=== PATIENT | female | born 2000 | race Two or more races ===

== ENCOUNTER 2024-04-19 21:04 | Emergency (ER) | payer MEDICAID, SELFPAY ==
[2024-04-19 21:06] VITALS: BMI 23.4
[2024-04-19 21:16] VITALS: BP 116/83; PULSE 78; RESP 18; TEMP 36.6; O2SAT 99
--- NOTE | 2024-04-19 21:31 | XR_ITS ---
Examination: CT brain head without contrast. 2-D sagittal coronal reconstructions Date and time of exam:April 19, 2024 1130 hrs. Indications: Syncopal episode today, patient fell with injury to the head, head pain CTDI: vol (mGy):49.3 DLP: (mGycm):974 Technique: Multiple CT axial sections of the brain have been obtained, 5 mm slice thickness. Contrast has not been administered. 2-D sagittal, coronal reconstructions have been obtained Low dose protocols were performed. One or more of the following dose reduction techniques were used; automated exposure control, adjustment of the mA and/or KV according to patient size, use of iterative reconstruction technique. Findings: No significant ventricular enlargement. Intra-axial or extra-axial hemorrhage density is not seen. No mass effect or midline shift Basal cisterns are not remarkable. Fourth ventricle is midline. Cranial vault intact. Impression: Negative for acute hemorrhage, mass effect or midline shift
--- NOTE | 2024-04-19 21:31 | XR_ITS ---
Examination: CT cervical spine without contrast 2-D sagittal reconstructions 2-D coronal reconstructions 3-D reconstructions. Exam date and time:April 19, 2024 11:30 PM Indications: Patient fell today with injury to the neck, neck pain CTDI:vol (mGy) 7.31 DLP: (mGycm) 139 Technique: Multiple 2 mm axial sections of the cervical spine have been obtained. The coronal and sagittal reconstructions have been obtained. 3-D reconstructions have been obtained. Low dose protocols were performed. One or more of the following dose reduction techniques were used; automated exposure control, adjustment of the mA and/or KV according to patient size, use of iterative reconstruction technique. Findings: Axial sections demonstrate intact base of the skull. C1 exhibit satisfactory relationship to the odontoid. No acute cervical vertebral body fracture seen. Alignment posterior spinous processes satisfactory. Impression: No acute cervical fracture.
--- NOTE | 2024-04-19 21:32 | XR_ITS ---
Examination: Transvaginal ultrasound of the pelvis, complete Technique: Transvaginal sonographic images pelvis performed using kirby scale imaging Exam date and time: 810 0 1:00 PM Indications: Heavy vaginal bleeding today Findings: Uterus 8.2 x 3.2 x 4.9 cm No intrauterine gestation Minimal free fluid in the lower endometrial canal Endometrial stripe 0.4 cm Right ovary 3.0 x 2.2 x 1.8 cm arterial flow 17 mm follicular cyst Left ovary 3.6 x 2.5 x 2.7 cm arterial flow 24 x 21 mm cyst with internal echoes Impression: No uterine mass or intrauterine gestation Small left ovarian hemorrhagic cyst.
--- NOTE | 2024-04-19 21:40 | EDNOTE_ITS ---
ED Female Urogenital RME/HPI General Chief complaint: Urogenital-Female Stated complaint: ABD PAIN, N/V THINKS SHE HAD A MISCARRIAGE Time Seen by Provider: 04/19/24 21:31 Arrival date/time: 04/19/24 21:04 23F with history of anxiety presents to ED with vaginal bleeding. Patient thinks she's having a miscarriage because her periods are irregular even though she's had two negative HCG urine tests. While patient was bleeding, patient got scared, fainted, and hit her head. Patient denies AMS, seizures, neck pain, vision changes, and N/V. Limitations: no limitations Related Data Allergies Allergy/AdvReac Type Severity Reaction Status Date / Time No Known Allergies Allergy Verified 04/19/24 21:09 Review of Systems Review of Systems Systems Reviewed: All systems reviewed, normal except as documented Constitutional Constitutional: Reports system reviewed and no additional complaints, except as documented, Reports as per HPI, Denies fever(s) and Reports headache(s) (pain) ENT Ears, Nose, Mouth, and Throat: Denies disequilibrium and Reports headache(s) (pain) Cardiovascular Cardiovascular: Reports system reviewed and no additional complaints, except as documented, Denies chest pain and Denies dyspnea Respiratory Respiratory: Reports system reviewed and no additional complaints, except as documented, Denies cough and Denies dyspnea Gastrointestinal Gastrointestinal: Reports system reviewed and no additional complaints, except as documented, Denies abdominal pain, Denies nausea and Denies vomiting Genitourinary Genitourinary: Reports as per HPI and Reports abnormal vaginal bleeding Neurologic Neurologic: Reports system reviewed and no additional complaints, except as documented, Denies confusion, Denies disequilibrium and Reports headache(s) (pain) Psychiatric Psychiatric: Denies confusion Past Medical History Past Medical History CARDIAC: Negative Congestive Heart Failure RESPIRATORY: Negative Chronic Obstructive Pulmonary Disease (COPD) GENITOURINARY: Negative Renal Disease ENDOCRINE: Negative Diabetes Mellitus Type 1 or Diabetes Mellitus Type 2 Social History SMOKING STATUS: Never smoker ED Exam General Limitations: Present no limitations General appearance: Present alert and in no apparent distress Head Head exam: Present atraumatic Eye Eye exam: Present normal appearance, PERRL and EOMI ENT ENT exam: Present normal exam, normal oropharynx and mucous membranes moist Neck Neck exam: Present normal inspection, full ROM and trachea midline Chest Chest inspection: Present normal inspection and symmetric chest wall rise Respiratory Respiratory exam: Present normal lung sounds bilaterally Cardiovascular Cardiovascular exam: Present regular rate, normal rhythm and normal heart sounds Abdominal Exam Abdominal exam: Present soft and normal bowel sounds Extremities Exam Extremities exam: Present normal inspection and full ROM Back Exam Back exam: Present normal inspection and full ROM Neurological Exam Neurological exam: Present alert, oriented X3 and CN II-XII intact Psychiatric Psychiatric exam: Present normal affect and anxious (crying) Skin Skin exam: Present warm, dry, intact and normal color Course Quality Measures none Orders Category Date Time Status CT cervical spine wo con Stat Exams 04/19/24 21:[address] head/brain wo con Stat Exams 04/19/24 21:31 Completed US transvaginal Stat Exams 04/19/24 21:32 Completed ABO/RH Type Stat Lab 04/19/24 22:19 Completed Beta HCG,Quantitative Stat Lab 04/19/24 22:19 Completed CBC Stat Lab 04/19/24 22:19 Completed CMP [Comprehensive Metabolic Panel] Stat Lab 04/19/24 22:19 Completed Urinalysis, C/S if Indicated Stat Lab 04/19/24 21:05 Completed Urine Culture Stat Lab 04/19/24 21:05 Received Acetaminophen Tab [Tylenol Tab] Med 04/19/24 22:19 Discontinued 650 mg PO X1 ONE Vital Signs Vital signs: Vital Signs Temperature 98 F 04/19/24 21:16 Pulse Rate 78 04/19/24 21:16 Respiratory Rate 18 04/19/24 21:16 Blood Pressure 116/83 04/19/24 21:16 Pulse Oximetry (%) 99 04/19/24 21:16 Oxygen Delivery Method Room Air 04/19/24 21:16 O2 at 99% on RA and WNLs Urogenital - Female MDM Narrative MDM Narrative:: 23F with history of anxiety presents to ED with vaginal bleeding. Patient thinks she's having a miscarriage because her periods are irregular even though she's had two negative HCG urine tests. While patient was bleeding, patient got scared, fainted, and hit her head. Patient denies AMS, seizures, neck pain, vision changes, and N/V. Physical exam reveals normal pupil response and EOM. ENT clear No neck tenderness. ROM intact. No back/ab/pelvic tenderness. Patient is afebrile, alert, but crying/anxious. Despite recommending no CT head, patient wants it. CT normal. US ovarian cyst. Mild anemia. CMP unremarkable. HCG <1. Patient is not . Patient data External records reviewed:: [facility] previous records Clinical information provided by:: patient Social determinants that could affect healthcare access:: none Patient has the following chronic illnesses:: none How is presenting disease/condition affected by chronic disease/condition?: no chronic disease Evaluation data The following diagnostics were reviewed and interpreted by me:: lab results and radiology exam(s) Lab and/or radiology exams considered but not ordered:: ordered Interpretation Summary: above Medications / Prescriptions Medications or Prescriptions considered but not ordered:: not ordered Medication administrations:: Medication Administration History Discontinued Medications Acetaminophen (Acetaminophen 325 Mg Tablet) 650 mg PO X1 ONE Stop: 04/19/24 22:20 Last Admin: 04/19/24 22:44 Dose: 650 mg Documented By: SEN n/a Consultations Consultation(s) initiated? (list below): No Diagnosis Urogenital Female Differential Diagnosis: urinary tract infection, bacterial vaginosis, trichomoniasis, cervicitis, ovarian cyst, vaginitis, ruptured ovarian cyst, cyst of Bartholin's gland, cystitis, dysmenorrhea and other (CHI, brain bleed, skull fx, vaginal bleeding, miscarriage) Most likely diagnosis given after review of the tests above:: ovarian cyst Admission Indicated Admission indicated?: not indicated Admission Request Was there a request for admission?: No Disposition Plan Disposition Plan: Discharge Discharge Attestation Discharge Attestation: The patient and all family members were given an opportunity to ask questions and understood the discharge instructions. Discharge instructions specifically effects, indications for sooner follow up or return to the emergency department, and the expected course of current diagnosis. Patient condition: Stable Discharge Plan Plan Patient Disposition: HOME (Self Care) Disposition Comment: Stable Prescriptions/Referrals Referrals: Darek Pierce PA-C [Primary Care Provider] - In 1 week Problem List Clinical Impression: Ovarian cyst Patient/Caregiver Discharge Instructions Education Materials: ED Ovarian Cyst Additional Instructions: Please follow-up with PCP/OBGYN within 24-48 hours and return immediately if symptoms worsen. Print Language: Wallisian Stand Alone Forms: Patient Portal Info Letter ARTURO/RAY Supervising Physician ARMIN Supervising Physician: Dr. Carter
[2024-04-19 22:02] LABS: Collection Type, Urine Clean Catch; WBC,Urine 0 /hpf (0-5)
[2024-04-19 22:11] LABS: Bacteria,Urine 4+; Bilirubin,Urine Negative (Negative); Blood,Urine 3+ (Negative); Clarity,Urine Clear (Clear/Hazy); Color,Urine Lt-Yellow (Lt Yel-Yel); Glucose, Urine Negative (Negative); Ketones,Urine Negative (Negative); Leukocyte Esterase,Urine Negative (Negative); Nitrite,Urine Negative (Negative); Protein,Urine Negative (Neg - Trace); RBC,Urine 5 /hpf (0-3); Specific Gravity,Urine 1.009 (1.001-1.035); Squamous Epithelial Cell,Urine 1 /hpf (0-5); Urobilinogen,Urine Negative mg/dL (0.0-1.0)
[2024-04-19 22:12] LABS: Culture Indicated,Urine Yes
[2024-04-19 22:40] LABS: Basophils % (Auto) 1 % (0-2.5); Eosinophils # (Auto) 0.1 Thou/mm3 (0.0-0.5); Eosinophils % (Auto) 2 % (0-10); Hematocrit 33.6 % (36.0-46.0); Hemoglobin 10.5 g/dL (12.0-16.0); Immature Granulocytes % (Auto) 0 % (0-0); Immature Granulocytes Auto 0.02 Thou/mm3 (0.00-0.00); Lymphocytes # (Auto) 1.8 Thou/mm3 (1.0-4.8); Lymphocytes % (Auto) 27 % (10-50); Mean Corpuscular HGB Conc 31.3 g/dl (31.0-37.0); Mean Corpuscular Hemoglobin 22.1 pg (25.0-35.0); Mean Corpuscular Volume 71 fL (80-100); Monocytes # (Auto) 0.6 Thou/mm3 (0.0-0.8); Monocytes % (Auto) 9 % (0-12); Neutrophils # (Auto) 4.1 Thou/mm3 (1.8-7.7); Neutrophils % (Auto) 61 % (37-80); Nucleated Red Blood Cell % 0 /100 WBC (0); Platelet Count 504 Thou/mm3 (140-440); RDW Standard Deviation 42.2 fL (36.4-46.3); Red Blood Count 4.75 Miln/mm3 (4.00-5.20); White Blood Count 6.7 Thou/mm3 (3.6-11.0)
[2024-04-19] MEDS: ACETAMINOPHEN 325 MG TABLET 650 MG PO (22:44)
[2024-04-19 22:55] LABS: Sodium 137 mMol/L (136-145)
[2024-04-19 22:56] LABS: Alanine Aminotransferase 13 U/L (10-49); Albumin, Serum 4.9 gm/dL (3.5-5.0); Albumin/Globulin Ratio 1.6 (1.2-2.2); Alkaline Phosphatase 62 U/L (46-116); Anion Gap 7 (7-16); Aspartate Amino Transferase 24 U/L (0-34); BUN/Creatinine Ratio 12 Ratio (12-20); Beta HCG,Quantitative < 1 mIU/mL (<5.0); Bilirubin,Total 0.5 mg/dL (0.3-1.2); Blood Urea Nitrogen 12 mg/dL (9-23); Carbon Dioxide 24.5 mMol/L (20.0-31.0); Chloride 106 mMol/L (98-107); Globulin 3.1 gm/dL (2.3-3.5); Glucose 87 mg/dL (74-106); Osmolality,Calculated 272 (275-295); Potassium 3.8 mMol/L (3.4-5.1); eGFR > 60 See Note
== END 2024-04-20 00:25 | disposition home or self-care (01) ==
PROVIDERS: Physician Assistant; Emergency Provider Emergency Medicine; PCP Family Medicine
DX: N83.202 Unspecified ovarian cyst, left side (principal); S09.90XA Unspecified injury of head, initial encounter; S19.9XXA Unspecified injury of neck, initial encounter; W19.XXXA Unspecified fall, initial encounter
CPT/HCPCS: 36415; 70450; 72125; 76830; 80053; 81001; 84702; 85025; 86900; 86901; 87086; 99284; A9270

== ENCOUNTER 2025-01-09 10:38 | Emergency (ER) | payer OTHER, SELFPAY ==
[2025-01-09 10:39] VITALS: BMI 22.8
[2025-01-09 10:55] VITALS: BP 143/93; PULSE 82; RESP 17; TEMP 37.3; O2SAT 100
--- NOTE | 2025-01-09 11:01 | EKG_ITS ---
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
--- NOTE | 2025-01-09 11:02 | PD.EDADULT ---
ED General RME/HPI General Chief complaint: Fall Stated complaint: FELL AND HIT HEAD Time Seen by Provider: 01/09/25 10:57 Arrival date/time: 01/09/25 10:38 CC: Syncope resulting in nausea and vomiting after waking back up HPI onset approximately for half an hour ago patient states he had a brief episode of dizziness prior to syncope states she was at the coffee machine and next thing she knew she woke up on the floor. Patient since then has mild pain in the back of her head with nausea and vomiting x 1. Patient is awake alert oriented cleaning a minor amount of dizziness. Has a prior history of syncopal events. Last menstrual cycle was 5 weeks ago. Patient is sexually active. Related Data Allergies Allergy/AdvReac Type Severity Reaction Status Date / Time No Known Allergies Allergy Verified 01/09/25 10:38 Review of Systems Review of Systems Narrative Review of Systems: GEN: No fever, no chills, no weight loss EYES: No discharge, no visual changes, no pain HEENT: No ear pain, no congestion, no sore throat PULM: No shortness of breath, no cough, no congestion CV: No chest pain, no dyspnea on exertion, no palpitations GI: No nausea, no vomiting, no diarrhea, no pain, no constipation : No frequency, no urgency, no dysuria MUSC/SKEL: No joint pain, no back pain SKIN: No rash PSYCH: No hallucinations, no depression HEME/LYMPH: No easy bleeding or bruising tendencies NEURO: No weakness, + headache Past Medical History Past Medical History CARDIAC: Negative Congestive Heart Failure RESPIRATORY: Negative Chronic Obstructive Pulmonary Disease (COPD) GENITOURINARY: Negative Renal Disease ENDOCRINE: Negative Diabetes Mellitus Type 1 or Diabetes Mellitus Type 2 Social History SMOKING STATUS: Never smoker ED Exam Narrative Physical exam: [General: Not in any acute distress Head normocephalic mild tenderness to the right occiput no depression abrasion laceration induration or ulceration. HEENT: Eyes pupils are PERRLA EOMs are intact mouth pink moist membranes uvula is midline swallow symmetrical phonation is normal. Within acceptable limits Neck is supple nontender nontender to palpation over the spinous processes full range of motion lateral rotation flexion and extension. Chest equal chest rise nontender to palpation Respiratory: Clear to auscultation no wheezes crackles or rubs CV: Rate rhythm is regular no murmurs rubs or clicks Abdomen is soft nontender no masses positive bowel sounds all 4 quadrants Back: No CVA tenderness no spinous process tenderness from cervical spine thoracic and lumbar spine Skin: Intact no petechiae rash induration ulceration or crepitus Extremities: Moving all extremity against resistance cap refill less than 2 seconds neurosensory intact Neuro: Awake alert oriented x3 Glascow coma 15 no focal deficits] cranial nerves II through XII are grossly intact Course Quality Measures none Orders Category Date Time Status Bedside COVID-19 Antigen Test NOW Care 01/09/25 11:01 Active Bedside Influenza A&B Antigen Test NOW Care 01/09/25 11:01 Active EKG (ED ONLY) *Do not use* NOW Care 01/09/25 11:[address] head/brain wo con Stat Exams 01/09/25 11:35 Completed EKG (ED Only) Stat Exams 01/09/25 11:01 Draft Drug Screen,Urine Stat Lab 01/09/25 12:37 Completed HCG Qualitative,Urine Stat Lab 01/09/25 12:37 Completed Urinalysis, C/S if Indicated Stat Lab 01/09/25 12:37 Completed Ondansetron Odt [Zofran Odt] Med 01/09/25 11:02 Discontinued 4 mg PO X1 ONE Vital Signs Vital signs: Vital Signs Temperature 99.1 F 01/09/25 10:55 Pulse Rate 82 01/09/25 10:55 Respiratory Rate 17 01/09/25 10:55 Blood Pressure 143/93 H 01/09/25 10:55 Pulse Oximetry (%) 100 01/09/25 10:55 Oxygen Delivery Method Room Air 01/09/25 10:55 Discharge Plan Plan Patient Disposition: HOME (Self Care) Patient condition on transfer: Stable Prescriptions/Referrals Referrals: Mauro Drew MD [Primary Care Provider] - In 1 week Problem List Clinical Impression: Syncope, Concussion Patient/Caregiver Discharge Instructions Other Activity Instructions:: There is no acute finding or damage to your head. I suspect you have a concussion secondary to the vomiting afterwards please follow-up with your primary care doctor if there is worsening of symptoms in spite of the medications return the emergency room immediately for further evaluation. Take ibuprofen or Tylenol for headache. Education Materials: After a Concussion, What Is Syncope?, ED Concussion Print Language: Uruguayan Stand Alone Forms: Aury Award Info., Work/School Release, Patient Portal Info Letter ARMIN Supervising Physician ARMIN Supervising Physician: Rodrigo Keene ENP MDM Clinical Information Provided by patient Medical Records Reviewed [facility] Meds/Rx Considered, not Ordered None Labs/Rad/Tests considered, not Ordered None Chronic Illness/Social Conditions which may negatively complicate care or outcome(s)-explain: None or not applicable Lab Interpretation Lab(s) interpretation(s): Urine shows turbid 1+ protein 3+ blood 22 RBCs 8 WBC squamous cell 11 2+ bacteria leukocyte esterase positive hCG is negative UDS is negative Imaging Provider imaging interpretation(s): CT head is interpreted by me read by radiology as negative for any acute finding. Medication Administration(s) Medication Administration History Discontinued Medications Ondansetron HCl (Ondansetron Odt 4 Mg Tabrap) 4 mg PO X1 ONE; Protocol Stop: 01/09/25 11:03 Last Admin: 01/09/25 11:14 Dose: 4 mg Documented By: DEMETRIUS
[2025-01-09] MEDS: ONDANSETRON ODT 4 MG TABRAP PO (11:14)
--- NOTE | 2025-01-09 11:35 | XR_ITS ---
Examination: CT brain head without contrast. 2-D sagittal coronal reconstructions Date and time of exam:January 09, 2025 12:17 PM Comparison April 19, 2024 INDICATIONS: Patient fell today with injury to the head followed by syncope head pain CTDI: vol (mGy):50.7 DLP: (mGycm):1032 Technique: Multiple CT axial sections of the brain have been obtained, 5 mm slice thickness. Contrast has not been administered. 2-D sagittal, coronal reconstructions have been obtained Low dose protocols were performed. One or more of the following dose reduction techniques were used; automated exposure control, adjustment of the mA and/or KV according to patient size, use of iterative reconstruction technique. Findings: No significant ventricular enlargement. Intra-axial or extra-axial hemorrhage density is not seen. No mass effect or midline shift Basal cisterns are not remarkable. Fourth ventricle is midline. Cranial vault intact. Impression: Negative for acute hemorrhage, mass effect or midline shift
[2025-01-09 12:50] LABS: Collection Type, Urine Clean Catch
[2025-01-09 12:56] LABS: Bacteria,Urine 2+; Bilirubin,Urine Negative (Negative); Blood,Urine 3+ (Negative); Clarity,Urine Turbid (Clear/Hazy); Color,Urine Yellow (Lt Yel-Yel); Culture Indicated,Urine Contaminated; Glucose, Urine Negative (Negative); HCG Qualitative,Urine Negative; Ketones,Urine Negative (Negative); Leukocyte Esterase,Urine Positive (Negative); Nitrite,Urine Negative (Negative); PH,Urine 6.0 (5.0-7.0); Protein,Urine 1+ (Neg - Trace); RBC,Urine 22 /hpf (0-3); Specific Gravity,Urine 1.032 (1.001-1.035); Squamous Epithelial Cell,Urine 11 /hpf (0-5); Urobilinogen,Urine Negative mg/dL (0.0-1.0); WBC,Urine 8 /hpf (0-5)
[2025-01-09 13:07] LABS: Amphetamine/Methamp Scrn,U Negative (Negative); Barbiturate Screen,Urine Negative (Negative); Benzodiazepines Screen,Urine Negative (Negative); Benzoylecgonine Screen, Ur Negative (Negative); Fentanyl Screen,Urine Negative (Negative); Opiate Screen,Urine Negative (Negative); THC Screen,Urine Negative (Negative)
[2025-01-09 15:27] VITALS: BP 121/62; PULSE 66; RESP 18; TEMP 36.5; O2SAT 98
== END 2025-01-09 15:30 | disposition home or self-care (01) ==
PROVIDERS: Registered Nurse General Practice; Emergency Provider Family Medicine; PCP Family Medicine
DX: S06.0XAA Concussion with loss of consciousness status unknown, initial encounter (principal); R55 Syncope and collapse; W19.XXXA Unspecified fall, initial encounter
CPT/HCPCS: 70450; 80307; 81001; 81025; 93005; 99283; Q0162